=== PATIENT | male | born 1945 | race Caucasian/White ===

== ENCOUNTER 2017-08-29 18:35 | Inpatient (IN) | payer OTHER ==
[~2017-08-29] VITALS: Ht 177.8 cm; Wt 82.5 kg
[~2017-08-29 18:35] MED LIST: AMLODIPINE-BEN1 EAC3 PO; LOTREL 5/101 CAPSULE PO; OXYCODONE HCL5 MG PO; SIMVASTATIN20 MG PO; TAMSULOSIN HCL0.4 MG PO
[2017-08-29 18:55] LABS: BASOPHIL (%) 0.4 % (0-1); BASOPHIL COUNT 0.1 K/uL (0-0.1); EOSINOPHIL (%) 4.1 % (0-5); EOSINOPHIL COUNT 0.5 K/uL (0-0.3); HEMATOCRIT 42.1 % (38.0-50.0); IMMATURE GRANULOCYTE (%) 0.9 % (0.0-0.7); LYMPHOCYTE (%) 17.8 % (15-42); LYMPHOCYTE COUNT 2.1 K/uL (1.0-2.8); MCH 29.5 PG (29.0-34.0); MCHC 33.3 G/DL (30.0-36.0); MCV 88.8 FL (86-99); MONOCYTE (%) 7.5 % (3-12); MONOCYTE COUNT 0.9 K/uL (0-0.8); NEUTROPHIL (%) 69.3 % (45-76); NEUTROPHIL COUNT 8.1 K/uL (1.8-6.4); PLATELET COUNT 267 K/uL (156-360); RBC DIS.WIDTH-CV 12.6 % (11.8-14.6); RED BLOOD COUNT 4.74 M/uL (4.00-5.50); WHITE BLOOD COUNT 11.7 K/uL (4.1-10.2)
[2017-08-29 19:13] LABS: AMYLASE 53 IU/L (1-118); CHLORIDE 105 mEq/L (99-109); POTASSIUM 4.2 mEq/L (3.7-5.4); SODIUM 141 mEq/L (136-147)
[2017-08-29 19:14] LABS: GLUCOSE 122 mg/dL (70-99)
[2017-08-29 19:17] LABS: SERUM ETHYL ALCOHOL < 10 mg/dL
[2017-08-29 19:18] LABS: CREATININE 1.1 mg/dL (0.6-1.3); GFR ESTIMATE (CALCULATED) > 59 mL/min/ (58.99-99999)
[2017-08-29 19:19] LABS: UREA NITROGEN (BUN) 17 mg/dL (9-23)
[2017-08-29 19:21] LABS: LIPASE 38 U/L (1.0-51.0)
[2017-08-29 20:04] LABS: APPEARANCE CLEAR ((CLEAR)); BILIRUBIN NEGATIVE; BLOOD MODERATE; COLOR STRAW ((YELLOW)); GLUCOSE (STRIP) NEGATIVE; KETONES NEGATIVE; LEUKOCYTES NEGATIVE; NITRITE NEGATIVE; PROTEIN (STRIP) NEGATIVE; SPECIFIC GRAVITY 1.038 (1.000-1.030); UROBILINOGEN 0.2 MG/DL (0.2-1.0)
[2017-08-29 20:09] LABS: BACTERIA RARE /HPF; EPITHELIAL CELLS RARE /HPF; MUCUS TRACE /LPF; RED BLOOD CELLS TNTC /HPF (0-5); UCUL ADDED? YES; WHITE BLOOD CELLS 0-5 /HPF (0-5)
[2017-08-29 20:24] LABS: AMPHETAMINE NEGATIVE (500 ng/mL); BARBITURATES NEGATIVE (200 ng/mL); BENZODIAZEPINES NEGATIVE (150 ng/mL); BUPRENORPHINE NEGATIVE (10 ng/mL); COCAINE NEGATIVE (150 ng/mL); METHADONE NEGATIVE (200 ng/mL); METHAMPHETAMINE NEGATIVE (500 ng/mL); OPIATES (MORPHINE) NEGATIVE (100 ng/mL); OXYCODONE NEGATIVE (100 ng/mL); PHENCYCLIDINE NEGATIVE (25 ng/mL); PROPOXYPHENE NEGATIVE (300 ng/mL); THC CANNABINOIDS NEGATIVE (50 ng/mL); TRICYCLIC ANTIDEPRESSANTS NEGATIVE (300 ng/mL)
[2017-08-29] MEDS ORDERED: AMOXICILLIN500 MG PO (21:07)
[2017-08-30] VITALS (7 sets, daily range): BP systolic 106–152; BP diastolic 58–66
[2017-08-30 06:03] LABS: HEMATOCRIT 38.1 % (38.0-50.0); HEMOGLOBIN 12.6 G/DL (12.5-16.6); MCH 29.6 PG (29.0-34.0); MCHC 33.1 G/DL (30.0-36.0); MCV 89.4 FL (86-99); PLATELET COUNT 243 K/uL (156-360); RBC DIS.WIDTH-CV 12.8 % (11.8-14.6); RBC DIS.WIDTH-SD 41.7 % (39-53); RED BLOOD COUNT 4.26 M/uL (4.00-5.50); WHITE BLOOD COUNT 8.6 K/uL (4.1-10.2)
[2017-08-30 06:32] LABS: ALBUMIN 3.6 G/DL (3.2-4.8); ALKALINE PHOSPHATASE 49 IU/L (3-129); ALT (GPT) 22 IU/L (3-49); AST (GOT) 38 IU/L (2-34); CHLORIDE 102 MEQ/L (99-109); CREATININE 1.1 MG/DL (0.6-1.3); GFR ESTIMATE (CALCULATED) > 59 mL/min/ (58.99-99999); GLUCOSE 118 mg/dL (70-99); POTASSIUM 4.9 MEQ/L (3.7-5.4); SODIUM 139 MEQ/L (136-147); TOTAL BILIRUBIN 0.6 MG/DL (0.0-1.0); TOTAL PROTEIN 5.9 G/DL (6.4-8.3); UREA NITROGEN (BUN) 17 mg/dL (9-23)
[2017-08-31 04:11] VITALS: BP 124/58
[2017-08-31 06:59] VITALS: BP 143/67
[2017-08-31 10:57] VITALS: BP 144/67
[2017-08-31 15:19] VITALS: BP 124/60
[2017-08-31] MEDS ORDERED: ENDOCET 5-3251 EACH PO (15:46)
[2017-08-31] MEDS ORDERED: DOCUSATE SODIU100 MG PO (15:46)
[2017-08-31] MEDS ORDERED: MOTRIN600 MG PO (15:46)
== END 2017-08-31 17:21 | disposition home or self-care (01) | DRG 563 ==
LOC: TRA 18:35 → 3EAST 21:33 → EDOF 21:33 → ENRESERV 21:41 → 3EAST 08-30 00:57
PROVIDERS: Emergency Medicine; Thoracic Surgery (Cardiothoracic Vascular Surgery)
DX: S52.612A Displaced fracture of left ulna styloid process, initial encounter for closed fracture (principal); S22.42XA Multiple fractures of ribs, left side, initial encounter for closed fracture; S22.20XA Unspecified fracture of sternum, initial encounter for closed fracture; S62.112A Displaced fracture of triquetrum [cuneiform] bone, left wrist, initial encounter for closed fracture; S52.512A Displaced fracture of left radial styloid process, initial encounter for closed fracture; E78.5 Hyperlipidemia, unspecified; I10 Essential (primary) hypertension; R40.2412 Glasgow coma scale score 13-15, at arrival to emergency department; V89.2XXA Person injured in unspecified motor-vehicle accident, traffic, initial encounter; S60.812A Abrasion of left wrist, initial encounter; Z60.2 Problems related to living alone; Y92.410 Unspecified street and highway as the place of occurrence of the external cause
CPT/HCPCS: 70450; 71045; 71260; 72125; 73100; 74177; 80048; 80053; 81003; 82150; 83690; 85025; 85027; 86850; 86900; 86901; 87086; 93005; 94010; 94640 76; 94667; 94668; 94799; 99202; 99281; 99285; G0480; J0330; J0690; J1170; J1644; J2405; J2795; J3010; J7120; S0020